=== PATIENT | female | born 2000 | race Caucasian/White ===

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

== ENCOUNTER → 2018-04-14 11:06 | Outpatient (REF) | payer BC, SELFPAY ==
[2018-04-14 11:12] LABS: Basophils % 0.4 % (0.1-2.0); Eosinophils # 0.1 K/mm3 (0.0-0.4); Eosinophils % 3.1 % (0.1-12.0); Hematocrit 42.4 % (37.0-47.0); Hemoglobin 13.5 g/dL (12.2-16.2); Lymphocytes % 26.6 K/mm3 (10-50); Mean Corpuscular HGB Conc 31.8 g/dL (31.8-35.4); Mean Corpuscular Hemoglobin 26.8 pg (27.0-31.2); Mean Corpuscular Volume 84.2 fl (81-99); Mean Platelet Volume 7.6 fl (7.4-10.4); Monocytes # 0.2 K/mm3 (0.1-1.0); Monocytes % 4.3 % (1.7-9.3); Neutrophils # 2.4 K/mm3 (1.8-7.8); Neutrophils % 65.7 % (37.0-80.0); Platelet Count 250 K/mm3 (142-424); Red Blood Count 5.03 M/mm3 (4.20-5.40); Red Cell Distribution Width 13.2 % (11.5-17.5); White Blood Count 3.7 K/mm3 (4.5-13.0)
[2018-04-14 11:38] LABS: Anion Gap 15.2 mEq/L (5-15); Blood Urea Nitrogen 14 mg/dL (7-18); Carbon Dioxide 25 mmol/L (21.0-32.0); Chloride 108 mmol/L (98-107); Creatinine,Serum 0.99 mg/dL (0.55-1.02); Estimated Glomerular Filt Rate 72 ml/min (>60); GFR (African American) 87 ML/MIN (>60); Glucose 89 mg/dL (74-106); Potassium 4.2 mmoL/L (3.5-5.1); Sodium 144 mmol/L (136-145)
[2018-04-15 15:24] LABS: Adenovirus F 40/41, stool Not Detected (NotDetected); Astrovirus Not Detected (NotDetected); Campylobacter Not Detected (NotDetected); Clostridium Difficile A/B, PCR Not Detected (NotDetected); Cryptosporidium Not Detected (NotDetected); Cyclospora Cayetanesis Not Detected (NotDetected); Entamoeba histolytica Not Detected (NotDetected); Enteropathogenic E coli Not Detected (NotDetected); Giardia lamblia Not Detected (NotDetected); Norovirus Not Detected (NotDetected); Plesimonas Shigalloides, PCR Not Detected (NotDetected); Rotavirus A Not Detected (NotDetected); Salmonella, PCR Not Detected (NotDetected); Sapovirus Not Detected (NotDetected); Shigella Enterovasive E coli Not Detected (NotDetected); Vibrio Cholerae Not Detected (NotDetected); Vibrio, PCR Not Detected (NotDetected); Yersinia Entercolitica, PCR Not Detected (NotDetected)
[2018-04-15 17:26] LABS: Enteroaggregative E coli Detected (NotDetected); Enterotoxigenic E coli Detected (NotDetected); Shiga-like toxin E coli Detected (NotDetected)
== END ==
LOC: LAB 11:06
PROVIDERS: Visit Provider Internal Medicine
DX: K52.9 Noninfective gastroenteritis and colitis, unspecified (principal)
CPT/HCPCS: 80048; 85025; 87177; 87507

== ENCOUNTER → 2018-05-13 15:00 | Outpatient (CLI) | payer BC, SELFPAY ==
[2018-05-14 14:28] LABS: Adenovirus F 40/41, stool Not Detected (NotDetected); Astrovirus Not Detected (NotDetected); Campylobacter Not Detected (NotDetected); Clostridium Difficile A/B, PCR Not Detected (NotDetected); Cryptosporidium Not Detected (NotDetected); Cyclospora Cayetanesis Not Detected (NotDetected); Entamoeba histolytica Not Detected (NotDetected); Enteropathogenic E coli Not Detected (NotDetected); Enterotoxigenic E coli Not Detected (NotDetected); Giardia lamblia Not Detected (NotDetected); Norovirus Not Detected (NotDetected); Plesimonas Shigalloides, PCR Not Detected (NotDetected); Rotavirus A Not Detected (NotDetected); Salmonella, PCR Not Detected (NotDetected); Sapovirus Not Detected (NotDetected); Shiga-like toxin E coli Not Detected (NotDetected); Shigella Enterovasive E coli Not Detected (NotDetected); Vibrio Cholerae Not Detected (NotDetected); Vibrio, PCR Not Detected (NotDetected); Yersinia Entercolitica, PCR Not Detected (NotDetected)
[2018-05-14 16:39] LABS: Enteroaggregative E coli Detected (NotDetected)
== END ==
PROVIDERS: Visit Provider Internal Medicine
DX: K52.9 Noninfective gastroenteritis and colitis, unspecified (principal)
CPT/HCPCS: 87507

== ENCOUNTER → 2018-05-27 15:07 | Outpatient (CLI) | payer BC, SELFPAY ==
[2018-05-27 15:10] LABS: Adenovirus F 40/41, stool Not Detected (NotDetected); Astrovirus Not Detected (NotDetected); Campylobacter Not Detected (NotDetected); Clostridium Difficile A/B, PCR Not Detected (NotDetected); Cryptosporidium Not Detected (NotDetected); Cyclospora Cayetanesis Not Detected (NotDetected); Entamoeba histolytica Not Detected (NotDetected); Enteroaggregative E coli Not Detected (NotDetected); Enteropathogenic E coli Not Detected (NotDetected); Enterotoxigenic E coli Not Detected (NotDetected); Giardia lamblia Not Detected (NotDetected); Norovirus Not Detected (NotDetected); Plesimonas Shigalloides, PCR Not Detected (NotDetected); Rotavirus A Not Detected (NotDetected); Salmonella, PCR Not Detected (NotDetected); Sapovirus Not Detected (NotDetected); Shiga-like toxin E coli Not Detected (NotDetected); Shigella Enterovasive E coli Not Detected (NotDetected); Vibrio Cholerae Not Detected (NotDetected); Vibrio, PCR Not Detected (NotDetected); Yersinia Entercolitica, PCR Not Detected (NotDetected)
== END ==
PROVIDERS: PCP Internal Medicine; Visit Provider Internal Medicine
DX: A04.2 Enteroinvasive Escherichia coli infection (principal)
CPT/HCPCS: 87507

== ENCOUNTER → 2021-05-29 14:58 | Outpatient (CLI) | payer BC, SELFPAY ==
[2021-05-29 15:02] LABS: Microscopic, Urine URINE MICROSCOPIC (MICROSCOPIC)
[2021-05-29 15:23] LABS: Appearance,Urine CLEAR (Clear); Bilirubin,Urine Negative (Negative); Blood, Urine Negative (Negative); Color,Urine STRAW (Yellow); Glucose,Urine (UA) Negative (Negative); Ketones,Urine Negative (Negative); Leukocyte Esterase,Urine Negative (Negative); Nitrate,Urine Negative (Negative); PH,Urine 6.5 (5.0-8.5); Protein,Urine Negative (Negative); Specific Gravity, Urine 1.015 (1.005-1.030); Urobilinogen,Urine 0.2 EU/dl (0.2)
--- NOTE | 2021-05-29 15:30 | XR_ITS ---
PROCEDURE: XR CHEST 2V CLINICAL HISTORY: FEVER COUGH COMPARISON: CR CXR CHEST(2 VIEWS-NOT PORTABLE) from 10/28/2013 DX CXR2V XR chest 2V from 10/25/2017 FINDINGS: The cardiomediastinal silhouette and pulmonary vascularity are within normal limits. The lungs are clear without infiltrates, suspicious nodules, or pleural effusions. No acute bony abnormalities. IMPRESSION: No acute findings. Dictated by: Michael Hampton MD 05/29/2021 15:57 Michael Hampton MD in [place] 05/29/2021 15:57
[2021-05-29 15:38] LABS: Basophils % 0.6 % (0.1-2.0); Eosinophils # 0.1 K/mm3 (0.0-0.4); Eosinophils % 1.3 % (0.1-12.0); Hematocrit 41.5 % (37.0-47.0); Hemoglobin 13.4 g/dL (12.2-16.2); Lymphocytes # 1.3 K/mm3 (0.7-4.5); Lymphocytes % 27.5 % (10-50); Mean Corpuscular HGB Conc 32.4 g/dL (31.8-35.4); Mean Corpuscular Hemoglobin 27.8 pg (27.0-31.2); Mean Corpuscular Volume 85.8 fl (81-99); Mean Platelet Volume 7.3 fl (7.4-10.4); Monocytes # 0.2 K/mm3 (0.1-1.0); Monocytes % 4.8 % (1.7-9.3); Neutrophils # 3.2 K/mm3 (1.8-7.8); Neutrophils % 65.8 % (37.0-80.0); Platelet Count 272 K/mm3 (142-424); Red Blood Count 4.83 M/mm3 (4.20-5.40); Red Cell Distribution Width 14.2 % (11.5-17.5); White Blood Count 4.8 K/mm3 (4.8-10.8)
[2021-05-29 15:55] LABS: Chloride 103 mmol/L (98-107); Sodium 139 mmol/L (136-145)
[2021-05-29 15:58] LABS: Alanine Aminotransferase 14 U/L (12-78); Albumin Level 4.7 g/dl (3.5-5.0); Albumin/Globulin Ratio 1.5 (1.1-1.8); Alkaline Phosphatase 52 U/L (38-126); Aspartate Amino Transferase 29 U/L (14-36); Bilirubin,Total 0.6 mg/dl (0.2-1.3); Blood Urea Nitrogen 9 mg/dl (7-17); Calcium 8.9 mg/dl (8.4-10.2); Carbon Dioxide 26 mmol/L (22.0-30.0); Estimated Glomerular Filt Rate 89 ml/min (>60); GFR (African American) 108 ML/MIN (>60); Globulin 3.2 g/dL (1.3-3.2); Glucose 97 mg/dl (74-100); Total Protein,Serum 7.9 g/dl (6.3-8.2)
[2021-05-29 16:04] LABS: C-Reactive Protein 0.7 mg/L (0-4)
[2021-05-29 16:21] LABS: Squamous Epithelial Cell,Urine Occasional #/hpf (0-5)
[2021-05-29 16:36] LABS: Erythrocyte Sedimentation Rate 22 mm/hr (0-20)
[2021-05-31 19:11] LABS: Antinuclear Antibodies, IFA Positive (.)
== END ==
PROVIDERS: Visit Provider Internal Medicine
DX: R50.9 Fever, unspecified (principal); R05 Cough
CPT/HCPCS: 36415; 71046; 80053; 81001; 85025; 85651; 86038; 86140; 87040

== ENCOUNTER 2021-06-08 12:11 | Emergency (ER) | payer BC, SELFPAY ==
[2021-06-08 14:00] VITALS: BP 137/91; PULSE 83; RESP 18; TEMP 36.8; O2SAT 100; BMI 20.7
[2021-06-08 14:37] VITALS: BP 137/91; PULSE 83; RESP 18; TEMP 36.8; O2SAT 100
--- NOTE | 2021-06-08 14:37 | HMH.EDUTC ---
[facility] [place] Clinical Impression: Exposure to COVID-19 virus, Viral syndrome Disposition: Home, Self-Care Condition on Discharge: Good Instructions: DI for Viral Syndrome, DI for COVID-19 (Suspected or Confirmed ), Preventing the Spread of Coronavirus Discharge Instructions Additional Instructions: *Monitor Temp, Over the counter Motrin or Tylenol as directed/as needed Tylenol every 4 hours and Motrin every 6 hours (as long as your family doctor has told you that you can take it) for fever or pain. and straight to ER if unable to lower temp less than 101.0 after medication given *Warm salt water gargles may help to soothe the throat *Throat Lozenges *Warm fluids like tea with honey may help to soothe the throat *Sleep elevated *Humidifier/Vaporizer Follow up IMMEDIATELY for new or worsening symptoms or no Noticeable improvement over the next 48-72 hours. 911 for difficulty breathing or swallowing You were tested for today for COVID19 your test result should be back in the next 24-48 hours, you may call to the [facility] to see if your test results are back in the next 48 hours [phone] [facility] hours are 9am-9pm You was given a handout with instructions for Self Quarantine and Self isolation for while you wait on test results and what to do if they are positive If you are positive the Health Dept will be contacting you also Make sure to take your Vitamins Vit. C Vit D and Zinc if you can take them Referrals: Erwin Ochoa [Primary Care Provider] - As needed Forms: Work/School Release Medical Decision Making - Matteo Inquiry Pt receiving controlled substance: No Matteo was queried for this patient: No Vital Signs: 06/08/21 14:00 Temperature 98.2 F Temperature Source Oral Pulse Rate [Right Brachial] 83 Respiratory Rate 18 Blood Pressure [Right Arm] 137/91 H Blood Pressure Mean [Right Arm] 106 Blood Pressure Source [Right Arm] Automatic Cuff Blood Pressure Position [Right Arm] Sitting 02 Sat by Pulse Oximetry 100 Oxygen Delivery Method Room Air Orders (Tests/Meds): ORDERS Category Date Time Status Covid-19 Nasal PCR ([facility]) Routine Lab 06/08/21 14:34 Ordered [facility] [place] H[place] - General Stated complaint: covid test, symptoms Time Seen by Provider: 06/08/21 14:37 Mode of Arrival: Ambulatory Source of Information: Patient Limitations: No Limitations Description of Symptoms (Recalled from Triage Doc. by RN): COVID TEST D/T EXPOSURE HEENT Symptoms (Recalled from RN notes): No Resp Symptoms (Recalled from RN notes): No Skin Symptoms (Recalled from RN notes): No MS Symptoms (Recalled from RN notes): No Functional Status (Recalled from RN notes): WNL - History of Present Illness Provider Complaint: Patient state that she was recently exposed to COVID x 2 States that she has been having nasal congestion Scratchy throat, and headache so she came in to get tested for COVID - Related Data Allergies Allergy/AdvReac Type Severity Reaction Status Date / Time amoxicillin [AMOXICILLIN] Allergy Unknown I-HIVES Unverified 09/17/17 15:02 cefaclor [CEFACLOR] Allergy Unknown I-HIVES Unverified 09/17/17 15:02 - Worker's Comp Is this a Worker's Comp case?: No [facility] History - Hepatitis A Screen Drug use history?: No High risk sexual behaviors?: No History of sexually transmitted infection?: No Currently employed?: No Childcare worker?: No Do you have indoor plumbing?: Yes Do you have electricity?: Yes Attestation statement:: This patient has been screened for Hepatitis A risk factors. I have reviewed the patient's past medical history: Yes ROS Obtained: Yes All systems reviewed & no additional complaints, Yes Systems reviewed as appropriate & no additional complaints - Constitutional Constitutional: Reports system reviewed and no additional complaints, except as docu, Reports fever(s), Reports headache(s) - ENT Ears, Nose, Mouth, and Throat: Reports system reviewed and no additional complaints, except as do
== END 2021-06-08 14:40 | disposition home or self-care (01) ==
PROVIDERS: Emergency Provider Nurse Practitioner; PCP Internal Medicine
DX: Z20.822 Contact with and (suspected) exposure to COVID-19 (principal)
CPT/HCPCS: 99202; G0463; U0003

== ENCOUNTER → 2021-07-11 09:40 | Outpatient (CLI) | payer BC, SELFPAY | PROVIDERS: PCP Internal Medicine; Visit Provider Nurse Practitioner | DX: Z20.822 Contact with and (suspected) exposure to COVID-19 (principal); U07.1 COVID-19 | CPT/HCPCS: C9803; U0003; U0005 ==

== ENCOUNTER → 2021-07-21 08:10 | Outpatient (CLI) | payer BC, SELFPAY | PROVIDERS: PCP Internal Medicine; Visit Provider Nurse Practitioner | DX: Z20.822 Contact with and (suspected) exposure to COVID-19 (principal); U07.1 COVID-19 | CPT/HCPCS: C9803; U0003; U0005 ==

== ENCOUNTER → 2021-07-24 11:03 | Outpatient (CLI) | payer BC, SELFPAY | PROVIDERS: PCP Internal Medicine; Visit Provider Nurse Practitioner | DX: Z20.822 Contact with and (suspected) exposure to COVID-19 (principal) | CPT/HCPCS: C9803; U0003; U0005 ==

== ENCOUNTER 2022-08-02 14:47 | Emergency (ER) | payer BC, SELFPAY ==
[2022-08-02 15:40] VITALS: BP 134/87; PULSE 79; RESP 20; TEMP 37.2; O2SAT 100; BMI 19.9
--- NOTE | 2022-08-02 16:14 | EXP.UTC ---
Discharge Plan Disposition Patient Disposition: Home, Self-Care Condition: Good Prescriptions Prescriptions: New azithromycin [Zithromax Z-Gurwinder] 250 mg tablet See Rx Instructions .ROUTE .COMPLEX 5 Days Qty: 6 0RF Rx Instructions: For 250 mg dose pack: take 500 mg today (day 1), then 250 mg for 4 days (days 2-5) methylprednisolone [Medrol (Gurwinder)] 4 mg tablets,dose pack See Rx Instructions .Route .COMPLEX 6 Days Qty: 21 0RF Rx Instructions: taper pack; Referrals Follow up/Referrals: Erwin Ochoa MD [Primary Care Provider] - See instructions Activity Restrictions/Add. Instructions Additional Instructions/Restrictions: *Monitor Temp, Over the counter Motrin or Tylenol as directed/as needed Tylenol every 4 hours and Motrin every 6 hours (as long as your family doctor has told you that you can take it) for fever or pain. and straight to ER if unable to lower temp less than 101.0 after medication given *Warm salt water gargles may help to soothe the throat *Throat Lozenges? *Warm fluids like tea with honey may help to soothe the throat? *Sleep elevated *Humidifier/Vaporizer Take medication as prescribed Follow up IMMEDIATELY for new or worsening symptoms or no Noticeable improvement over the next 48-72 hours. 911 for difficulty breathing or swallowing Clinical Impressions Clinical Impression: Sinusitis Instructions Patient Instructions: DI for Sinusitis, Sinusitis Discharge ED Provider: Jasmin Negro [facility] General Stated complaint: Head congestion, cough Mode of Arrival: Ambulatory Source of Information: Patient Limitations: No Limitations Time Seen by Provider: 08/02/22 16:14 Description of Symptoms (Recalled from Triage Doc. by RN): PATIENT C/O SINUS PRESSURE, COUGH, FEVER AND HEADACHE THAT STARTED 2 DAYS AGO HEENT Symptoms (Recalled from RN notes): Yes Resp Symptoms (Recalled from RN notes): Yes Skin Symptoms (Recalled from RN notes): No MS Symptoms (Recalled from RN notes): No Functional Status (Recalled from RN notes): WNL History of Present Illness Provider Complaint: Patient states that she has been having sinus pressure on and off for over a week but for the last couple of days the sinus pressure and congestion has got worse and she had a sinus headache earlier States that it feels like it does when she gets a sinus infection Related Data Previous Rx's Medication Instructions Recorded azithromycin 250 mg tablet See Rx Instructions PO .COMPLEX 5 08/02/22 (Zithromax Z-Gurwinder) days #6 tabs methylprednisolone 4 mg tablets in See Rx Instructions .Route 08/02/22 a dose pack (Medrol (Gurwinder)) .COMPLEX 6 days #21 tabs Allergies Allergy/AdvReac Type Severity Reaction Status Date / Time amoxicillin [AMOXICILLIN] Allergy Unknown I-HIVES Verified 08/02/22 15:52 cefaclor [CEFACLOR] Allergy Unknown I-HIVES Verified 08/02/22 15:52 Worker's Comp Is this a Worker's Comp case?: No PFSH PFSH Medical History (Updated 08/02/22 @ 16:22 by Jasmin Negro APRN) No significant past medical history Social History (Updated 08/02/22 @ 15:51 by Maria Luisa Radford RN) Smoking Status: Unknown if ever smoked alcohol intake: never current occupational status: other Travel in the last 8 weeks: None ROS Obtained: Yes All systems reviewed & no additional complaints except as documented and Yes Systems reviewed as appropriate & no additional complaints except as documented Constitutional Constitutional: Reports system reviewed and no additional complaints, except as documented, Reports as per HPI, Reports fever(s) and Reports headache(s) ENT Ears, Nose, Mouth, and Throat: Reports system reviewed and no additional complaints, except as documented, Reports as per HPI, Reports headache(s), Reports sinus pain and Reports sinus pressure Cardiovascular Cardiovascular: Reports system reviewed and no additional complaints, except as documented and Reports as per HPI Respir
[2022-08-02 16:28] VITALS: BP 134/87; PULSE 79; RESP 20; TEMP 37.2; O2SAT 100
== END 2022-08-02 16:31 | disposition home or self-care (01) ==
PROVIDERS: Emergency Provider Nurse Practitioner; PCP Internal Medicine
DX: J32.9 Chronic sinusitis, unspecified (principal)
CPT/HCPCS: 99212; G0463

== ENCOUNTER 2023-07-23 19:12 | Emergency (ER) | payer BC, SELFPAY ==
[2023-07-23 20:05] VITALS: BP 131/86; PULSE 81; RESP 18; TEMP 36.8; O2SAT 98; BMI 18.4
[2023-07-23 20:14] VITALS: BP 131/86; PULSE 81; RESP 18; TEMP 36.8; O2SAT 98
--- NOTE | 2023-07-23 20:30 | EXP.UTC ---
Discharge Plan Disposition Patient Disposition: Home, Self-Care Condition: Good Prescriptions Prescriptions: New albuterol sulfate [Proventil HFA] 90 mcg/actuation HFA aerosol inhaler 1 - 2 inh inhalation Q6H PRN (Reason: shortness of breath or wheezing) Qty: 8.5 0RF prednisone 10 mg tablet 10 mg PO BID 5 Days Qty: 10 0RF azithromycin [Zithromax Z-Gurwinder] 250 mg tablet See Rx Instructions .ROUTE .COMPLEX 5 Days Qty: 6 0RF Rx Instructions: For 250 mg dose pack: take 500 mg today (day 1), then 250 mg for 4 days (days 2-5) guaifenesin [Mucinex] 600 mg tablet extended release 12hr 600 - 1,200 mg PO BID PRN (Reason: cough) Qty: 20 0RF Referrals Follow up/Referrals: Erwin Ochoa MD [Primary Care Provider] - See instructions Activity Restrictions/Add. Instructions Additional Instructions/Restrictions: Start antibiotic today. Be sure to complete entire prescription even if feeling better Monitor temp. Tylenol every 4 hours as needed and / or ibuprofen every 6 hours as needed ( As long as your primary care physician has told you that it ok to take both. For fever/aches/pains ER if no less than 101 despite Tylenol or Motrin Humidifier/vaporizer or hot steamy shower Inhaler every 4-6 hours as needed like we discussed. If unsure how to use it, ask pharmacist to demonstrate how. Should help open airways and improve cough, wheezing, and shortness of breath Mucinex for your cough Be sure to drink lots of water. *Start steroid today. Helps with inflammation therefore, cough and wheezing. Follow directions on the package. Reviewed side effects. Patient reports taking them before. Follow up IMMEDIATELY for new or worsening of symptoms OR no noticeable improvement over the next 48-72 hours. 911 immediately for any life threatening symptoms such as chest pain or difficulty breathing Clinical Impressions Clinical Impression: Bronchitis Sinusitis Qualifiers: Sinusitis location: unspecified location Chronicity: unspecified Qualified Code(s): J32.9 - Chronic sinusitis, unspecified Instructions Patient Instructions: DI for Sinusitis, Sinusitis, Acute Bronchitis Discharge ED Provider: Jasmin Negro [facility] General Stated complaint: ace, wheezy Mode of Arrival: Ambulatory Source of Information: Patient Limitations: No Limitations Time Seen by Provider: 07/23/23 20:31 Description of Symptoms (Recalled from Triage Doc. by RN): PATIENT C/O COUGH AND RATTLING IN CHEST X 1 WEEK HEENT Symptoms (Recalled from RN notes): No Resp Symptoms (Recalled from RN notes): Yes Skin Symptoms (Recalled from RN notes): No MS Symptoms (Recalled from RN notes): No Functional Status (Recalled from RN notes): WNL History of Present Illness Provider Complaint: Patient states that she has been having cough and rattling like feeling in her chest, sinus congestion and pressure States that she seen her PCP and they put her on Amoxicillin and she has since finished it and it didnt clear it up and it came back States that tonight she was still having cough and sinus congestion along with congestion in her chest so she came in to see if she needed something else for the sinusitis / bronchitis Related Data Previous Rx's Medication Instructions Recorded albuterol sulfate 90 mcg/actuation 1 - 2 inh inhalation Q6H PRN 07/23/23 aerosol inhaler (Proventil HFA) shortness of breath or wheezing #8.5 grams azithromycin 250 mg tablet See Rx Instructions PO .COMPLEX 5 07/23/23 (Zithromax Z-Gurwinder) days #6 tabs guaifenesin 600 mg tablet, 600 - 1,200 mg PO BID PRN cough 07/23/23 extended release 12 hr (Mucinex) #20 tabs prednisone 10 mg tablet 10 mg PO BID 5 days #10 tabs 07/23/23 Allergies Allergy/AdvReac Type Severity Reaction Status Date / Time amoxicillin [AMOXICILLIN] Allergy Unknown I-HIVES Verified 10/03/22 12:56 cefaclor [CEFACLOR] Allergy Unknown I-HIVES Verified 10/03/22
== END 2023-07-23 20:50 | disposition home or self-care (01) ==
PROVIDERS: Emergency Provider Nurse Practitioner; PCP Internal Medicine
DX: J20.9 Acute bronchitis, unspecified (principal); J01.90 Acute sinusitis, unspecified
CPT/HCPCS: 99212; 99214; G0463

== ENCOUNTER 2023-09-21 12:00 | Emergency (ER) | payer BC, SELFPAY ==
[2023-09-21 14:35] VITALS: BP 135/80; PULSE 81; RESP 18; TEMP 36.9; O2SAT 100; BMI 17.7
--- NOTE | 2023-09-21 14:50 | EXP.UTC ---
Discharge Plan Disposition Patient Disposition: Home, Self-Care Condition: Good Prescriptions Prescriptions: New ofloxacin 0.3 % drops See Rx Instructions .ROUTE .COMPLEX Qty: 10 0RF Rx Instructions: put 1-2 drps into affected eye(s) every 2-4 h x 2 days, then 1-2 drps 4 times/day days 3-7 Referrals Follow up/Referrals: Erwin Ochoa MD [Primary Care Provider] - See instructions Clinical Impressions Clinical Impression: Conjunctivitis Qualifiers: Conjunctivitis type: acute Acute conjunctivitis type: bacterial Laterality: left Qualified Code(s): H10.32 - Unspecified acute conjunctivitis, left eye Instructions Patient Instructions: DI for Conjunctivitis Discharge ED Provider: Katy Prado [facility] General Stated complaint: AO 09/20 left eye irritation Time Seen by Provider: 09/21/23 14:50 History of Present Illness Provider Complaint: Pt relates that she hit her eye and then rubbed it with her hands and the eye has turned completely red now. Related Data Previous Rx's Medication Instructions Recorded ofloxacin 0.3 % eye drops See Rx Instructions ophthalmic 09/21/23 (eye) .COMPLEX #10 mL Allergies Allergy/AdvReac Type Severity Reaction Status Date / Time amoxicillin [AMOXICILLIN] Allergy Unknown I-HIVES Verified 10/03/22 12:56 cefaclor [CEFACLOR] Allergy Unknown I-HIVES Verified 10/03/22 12:56 [facility] Disclaimer: The information contained in this section may have been updated after the patient was seen, as this information can be updated by other users. Medical History Family history of breast cancer maternal grandmother diagnosed at age 60 No significant past medical history Surgical History History of placement of ear tubes History of tonsillectomy Family History Other Cancer Diabetes Hypertension Social History Smoking Status: Never smoker alcohol intake: current substance use type: denies use current occupational status: employed and other Travel in the last 8 weeks: None ROS Obtained: Yes All systems reviewed & no additional complaints except as documented Constitutional Constitutional: Reports system reviewed and no additional complaints, except as documented Eyes Eyes: Reports system reviewed and no additional complaints, except as documented, Reports eye discharge, Reports irritation and Reports sensitivity to light ENT Ears, Nose, Mouth, and Throat: Reports system reviewed and no additional complaints, except as documented Cardiovascular Cardiovascular: Reports system reviewed and no additional complaints, except as documented Respiratory Respiratory: Reports system reviewed and no additional complaints, except as documented Gastrointestinal Gastrointestingal: Reports system reviewed and no additional complaints, except as documented Genitourinary Female Genitourinary: Reports system reviewed and no additional complaints, except as documented Musculoskeletal Musculoskeletal: Reports system reviewed and no additional complaints, except as documented Integumentary/Breasts Skin/Breast: Reports system reviewed and no additional complaints, except as documented Neurologic Neurologic: Reports system reviewed and no additional complaints, except as documented Endocrine Endocrine: Reports system reviewed and no additional complaints, except as documented Hematologic/Lymphatic Henatologic/Lymphatic: Reports system reviewed and no additional complaints, except as documented Allergic/Immunologic Allergic/Immunologic: Reports system reviewed and no additional complaints, except as documented Physical Exam General General appearance: alert and in no apparent distress Head Head exam: atraumatic and normocephalic Eye Eye exam: Present PERRL, EOMI,
[2023-09-21 15:09] VITALS: BP 135/80; PULSE 81; RESP 18; TEMP 36.9; O2SAT 100
== END 2023-09-21 15:11 | disposition home or self-care (01) ==
PROVIDERS: Emergency Provider Nurse Practitioner Family; PCP Internal Medicine
DX: H10.32 Unspecified acute conjunctivitis, left eye (principal)
CPT/HCPCS: 99212; 99214; G0463

== ENCOUNTER 2023-10-23 16:32 | Outpatient (CLI) | payer BC, SELFPAY | END 2023-10-23 23:59 | LOC: LAB.DROPOF 16:32 | PROVIDERS: PCP Internal Medicine; Visit Provider Internal Medicine | DX: H10.31 Unspecified acute conjunctivitis, right eye (principal) | CPT/HCPCS: 87070; 87205 ==

== ENCOUNTER 2023-11-26 11:44 | Outpatient (CLI) | payer BC, SELFPAY | END 2023-11-26 23:59 | LOC: LAB 11:44 | PROVIDERS: PCP Internal Medicine; Visit Provider Internal Medicine | DX: U07.1 COVID-19 (principal) | CPT/HCPCS: 87635 ==

== ENCOUNTER 2024-06-04 08:08 | Emergency (ER) | payer BC, SELFPAY ==
[2024-06-04 08:20] VITALS: BP 127/77; PULSE 96; RESP 20; TEMP 37; O2SAT 100; BMI 19.8
--- NOTE | 2024-06-04 08:33 | ED_ITS ---
Discharge Plan Disposition Patient Disposition: Home, Self-Care Condition: Good Prescriptions Prescriptions: New pseudoephedrine HCl [Sudafed 12 Hour] 120 mg tablet extended release 120 mg PO Q12H PRN (Reason: nasal congestion) Qty: 20 0RF benzonatate 100 mg capsule 100 mg PO TID PRN (Reason: cough) Qty: 30 0RF No Action oseltamivir [Tamiflu] 75 mg capsule 75 mg PO BID 5 Days Qty: 10 0RF Referrals Follow up/Referrals: Erwin Ochoa MD [Primary Care Provider] - See instructions Activity Restrictions/Add. Instructions Additional Instructions/Restrictions: *Monitor Temp, Over the counter Motrin or Tylenol as directed/as needed Tylenol every 4 hours and Motrin every 6 hours (as long as your family doctor has told you that you can take it) for fever or pain. and straight to ER if unable to lower temp less than 101.0 after medication given *Warm salt water gargles may help to soothe the throat *Throat Lozenges? *Warm fluids like tea with honey may help to soothe the throat? *Sleep elevated *Humidifier/Vaporizer *Your throat swab was sent for culture. Those results are typically sent to your primary care. Be sure to follow up in 2-3 days with your family doctor/primary care physician if no improvement so they can review those result and treat if necessary. If you don?t have a primary care doctor, I recommend you get one but in the mean time, you will have to return to a walk in clinic Follow up IMMEDIATELY for new or worsening symptoms or no Noticeable improvement over the next 48-72 hours. 911 for difficulty breathing or swallowing You were tested for today for COVID19 your test result should be back in the next 24 hours, you may check your results on the [facility] Clinical Impressions Clinical Impression: Viral syndrome Stand Alone Forms Stand Alone Forms: Work/School Release Instructions Patient Instructions: Cough, DI for Viral Syndrome, DI for Nasal Congestion Print Language Print Language: Gambian Discharge ED Provider: Jasmin Negro [facility] General Stated complaint: headache, cough, congestion Time Seen by Provider: 06/04/24 08:33 History of Present Illness Provider Complaint: Patient states that she has been having nasal congestion, cough, headache, body aches and over all not feeling well States that she was dx with flu b last week and took a home COVID test last night and it was positive so she had to come in and get a test here Related Data Previous Rx's ?Medication ?Instructions ?Recorded oseltamivir 75 mg capsule (Tamiflu) 75 mg PO BID 5 days #10 caps 05/28/24 benzonatate 100 mg capsule 100 mg PO TID PRN cough #30 caps 06/04/24 pseudoephedrine HCl 120 mg 120 mg PO Q12H PRN nasal 06/04/24 tablet,extended release (Sudafed congestion #20 tabs 12 Hour) Allergies Allergy/AdvReac Type Severity Reaction Status Date / Time amoxicillin [AMOXICILLIN] Allergy Unknown I-HIVES Verified 05/28/24 11:48 cefaclor [CEFACLOR] Allergy Unknown I-HIVES Verified 05/28/24 11:48 [facility] Disclaimer: The information contained in this section may have been updated after the patient was seen, as this information can be updated by other users. Medical History Family history of breast cancer maternal grandmother diagnosed at age 60 No significant past medical history Surgical History History of placement of ear tubes History of tonsillectomy Family History Other Cancer Diabetes Hypertension Social History Smoking Status: Never smoker alcohol intake: current substance use type: denies use current occupational status: employed and other Travel in the last 8 weeks: None ROS Obtained: Yes All systems reviewed & no additional complaints except as documented and Yes Systems reviewed as appropriate & no additional complaints except as documented Constitutional Constitutional: Reports system reviewed and no additional complaints, except as documented, Reports as per HPI, Reports body ache and Reports headache(s) ENT Ears, Nose, Mouth, and Throat: Reports system reviewed and no additional complaints, except as documented, Reports as per HPI, Reports headache(s), Reports nasal congestion and Reports nasal discharge Cardiovascular Cardiovascular: Reports system reviewed and no additional complaints, except as documented and Reports as per HPI Respiratory Respiratory: Reports system reviewed and no additional complaints, except as documented and Reports as per HPI Gastrointestinal Gastrointestingal: Reports system reviewed and no additional complaints, except as documented and as per HPI Musculoskeletal Musculoskeletal: Reports system reviewed and no additional complaints, except as documented and Reports as per HPI Neurologic Neurologic: Reports system reviewed and no additional complaints, except as documented, Reports as per HPI and Reports headache(s) Physical Exam General General appearance: alert and in no apparent distress ENT ENT exam: Present mucous membranes moist Expanded ENT Exam Nose exam: Absent sinus tenderness Throat exam: Present normal inspection Respiratory Respiratory exam: Present normal lung sounds bilaterally; Absent respiratory distress or wheezes Cardiovascular Cardiovascular exam: Present regular rate, normal rhythm and normal heart sounds Neurological Exam Neurological exam: Present alert, oriented X3 and normal gait Medical Decision Making Matteo Inquiry Pt receiving controlled substance: No Matteo was queried for this patient: No Orders (Tests/Meds): ORDERS Category Date Time Status Covid-19 Nasal PCR ([facility]) Routine Lab 06/04/24 08:27 Ordered
[2024-06-04 08:48] LABS: UTC Strep Screen (Rapid) Negative (Negative)
[2024-06-04 08:51] VITALS: BP 127/77; PULSE 96; RESP 20; TEMP 37; O2SAT 100
== END 2024-06-04 08:57 | disposition home or self-care (01) ==
PROVIDERS: Emergency Provider Nurse Practitioner; PCP Internal Medicine
DX: U07.1 COVID-19 (principal); R51.9 Headache, unspecified; R05.9 Cough, unspecified; R09.81 Nasal congestion
CPT/HCPCS: 87635; 87880; 99212; 99214; G0463

== ENCOUNTER 2024-09-07 16:48 | Emergency (ER) | payer BC, SELFPAY ==
[2024-09-07 17:04] VITALS: BP 132/97; PULSE 92; RESP 18; TEMP 36.8; O2SAT 99
[2024-09-07 17:21] LABS: UTC Influenza A Antigen Negative (Negative); UTC Influenza B Antigen Negative (Negative)
--- NOTE | 2024-09-07 17:31 | EXP.UTC ---
Discharge Plan Disposition Patient Disposition: Home, Self-Care Condition: Good Prescriptions Prescriptions: New ondansetron 4 mg tablet,disintegrating 4 mg PO Q8H PRN (Reason: nausea and vomiting) Qty: 10 0RF Referrals Follow up/Referrals: Erwin Ochoa MD [Primary Care Provider] - See instructions Activity Restrictions/Add. Instructions Additional Instructions/Restrictions: Drink extra fluids with and between meals. If you have difficulty drinking, try very small amounts of water or suck on ice chips. ? Avoid fruit juices, as these do not replace minerals and can actually increase diarrhea. ? Children and adults can use sports drinks to replenish electrolytes. Younger children and infants should use products formulated for children, like oral rehydration solutions. ? Eat food in small amounts and let your stomach recover. ? Get lots of rest. You may feel tired or weak. ? No greasy or fried foods for the next 24-48 hours BRAT diet Bananas Rice Apples and [place] ? Make sure to drink plenty of liquids ? Return if needed ? Straight to ER if any life threatening symptoms ? Zofran as prescribed ? Follow up with family doctor in the next 48-72 hours if no improvement or any worsening of symptoms Clinical Impressions Clinical Impression: Viral syndrome Stand Alone Forms Stand Alone Forms: Work/School Release Instructions Patient Instructions: Nausea and Vomiting-Adult, Diarrhea Print Language Print Language: [place] Discharge ED Provider: Jasmin Negro [facility] [place] HPI General Stated complaint: vomiting, diarrhea, abd pain, h/a, fever Mode of Arrival: Ambulatory Source of Information: Patient Time Seen by Provider: 09/07/24 17:31 Description of Symptoms (Recalled from Triage Doc. 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 HEENT Symptoms (Recalled from RN notes): No Resp Symptoms (Recalled from RN notes): No Skin Symptoms (Recalled from RN notes): No MS Symptoms (Recalled from RN notes): No Functional Status (Recalled from RN notes): WNL History of Present Illness Provider Complaint: Patient states that she works at the daycare and several kids has had the stomach virus and she thinks she may have it now too States that she has been having N/V/D cramping before diarrhea episodes, body aches and fatigue States that she came in to get checked for the flu to make sure she didnt have that Related Data Previous Rx's ?Medication ?Instructions ?Recorded ondansetron 4 mg disintegrating 4 mg PO Q8H PRN nausea and 09/07/24 tablet vomiting #10 tabs Allergies Allergy/AdvReac Type Severity Reaction Status Date / Time amoxicillin (AMOXICILLIN) Allergy Unknown I-HIVES Verified 07/28/24 11:11 cefaclor (CEFACLOR) Allergy Unknown I-HIVES Verified 07/28/24 11:11 Worker's Comp Is this a Worker's Comp case?: No [facility] Disclaimer: The information contained in this section may have been updated after the patient was seen, as this information can be updated by other users. Medical History Family history of breast cancer maternal grandmother diagnosed at age 60 No significant past medical history Surgical History History of placement of ear tubes History of tonsillectomy Family History Other Cancer Diabetes Hypertension Social History Smoking Status: Never smoker alcohol intake: current substance use type: denies use current occupational status: employed and other Travel in the last 8 weeks: None ROS Obtained: Yes All systems reviewed & no additional complaints except as documented and Yes Systems reviewed as appropriate & no additional complaints except as documented Constitutional Constitutional: Reports system reviewed and no additional complaints, except as documented, Reports as per HPI, Reports body ache, Reports chills and Reports fever(s) ENT Ears, Nose, Mouth, and Throat: Reports system reviewed and no additional complaints, except as documented, Reports as per HPI and Reports nasal congestion Cardiovascular Cardiovascular: Reports system reviewed and no additional complaints, except as documented and Reports as per HPI Respiratory Respiratory: Reports system reviewed and no additional complaints, except as documented and Reports as per HPI Gastrointestinal Gastrointestingal: Reports system reviewed and no additional complaints, except as documented, as per HPI, cramping, diarrhea, nausea and vomiting; Denies abdominal pain Physical Exam General General appearance: alert and in no apparent distress ENT ENT exam: Present mucous membranes moist Expanded ENT Exam Nose exam: Absent sinus tenderness Throat exam: Present normal inspection Chest Chest inspection: Present normal inspection and symmetric chest wall rise; Absent tenderness Respiratory Respiratory exam: Present normal lung sounds bilaterally; Absent respiratory distress or wheezes Cardiovascular Cardiovascular exam: Present regular rate, normal rhythm and normal heart sounds Abdominal Exam Abdominal exam: Present soft and normal bowel sounds; Absent distention, tenderness, guarding or rebound Neurological Exam Neurological exam: Present alert, oriented X3 and normal gait Medical Decision Making Medical Records Screening: Per USPSTF and CDC recommendations, given the prevalence of disease in our region, it is our hospital?s policy to screen for HIV and viral Hepatitis for all patients aged 18 and over and those with ongoing risk factors. Matteo Inquiry Pt receiving controlled substance: No Matteo was queried for this patient: No Vital Signs: 09/07/24 17:04 Temperature 98.3 F Temperature Source Oral Pulse Rate [Left Radial] 92 H Respiratory Rate 18 Blood Pressure [Left Arm] 132/97 H Blood Pressure Mean [Left Arm] 108 02 Sat by Pulse Oximetry 99 Lab Data Lab results reviewed: Yes I reviewed the patient's lab results. Lab Results 09/07/24 17:20: Influenza Type A Ag Negative, Influenza Type B Ag Negative
[2024-09-07 17:41] VITALS: BP 132/97; PULSE 92; RESP 18; TEMP 36.8
== END 2024-09-07 17:52 | disposition home or self-care (01) ==
PROVIDERS: Emergency Provider Nurse Practitioner; PCP Internal Medicine
DX: B34.9 Viral infection, unspecified (principal); R11.2 Nausea with vomiting, unspecified; R19.7 Diarrhea, unspecified; R50.9 Fever, unspecified; R09.81 Nasal congestion
CPT/HCPCS: 87804; 99212; G0381

== ENCOUNTER 2025-06-27 10:19 | Emergency (ER) | payer BC, SELFPAY ==
[2025-06-27 10:31] VITALS: BP 135/86; BP 157/101; PULSE 115; PULSE 91; RESP 17; TEMP 36.9; O2SAT 100; O2SAT 99; BMI 21.1
--- NOTE | 2025-06-27 10:43 | US_ITS ---
PROCEDURE INFORMATION: Exam: US , Transvaginal Exam date and time: 06/27/2025 11:38 AM Age: 25 years old Clinical indication: Lmp or gestational age (in weeks): 4w4d; Antepartum complications; Bleeding; ; Additional info: Spotting, 4 wks by dates, unkn location LABS AND CLINICAL REPORTS: Choriogonadotropin in serum (Serum HCG): 3 mIU/mL TECHNIQUE: Imaging protocol: Real-time transvaginal obstetrical ultrasound of the maternal pelvis with image documentation. Transvaginal imaging was used for better evaluation of the fetus, adnexa, and/or cervix. COMPARISON: No relevant prior studies available. FINDINGS: Gestation: No intrauterine identified.. MATERNAL: Uterus: Endometrium 8.3 mm Right ovary/adnexa: Right ovary 4 x 2.1 x 1.9 cm total volume 8.7 cc. 1.3 cm Corpus luteal cyst in the right ovary. Peak systolic velocity in the right ovary 30 cm/s Left ovary/adnexa: Left ovary 3.2 x 1.9 x 2 cm total volume 6.4 cc. Peak systolic velocity left ovary 12 cm/s Intraperitoneal space: No fluid in the cul-de-sac Other findings: [employer] stated that there is active bleeding.. IMPRESSION: 1. No intrauterine identified.. 2. 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
--- NOTE | 2025-06-27 10:44 | ED_ITS ---
Discharge Plan Disposition Patient Disposition: Home, Self-Care Prescriptions Prescriptions: No Action azithromycin [Zithromax Z-Gurwinder] 250 mg tablet See Rx Instructions PO .COMPLEX Qty: 6 0RF Rx Instructions: For 250 mg dose pack: take 500 mg today (day 1), then 250 mg for 4 days (days 2-5) PO elzbrqujibedrtz-jnpmjxcax-IS [Bromfed DM] 2-30-10 mg/5 mL syrup 5 ml PO Q4-6H PRN (Reason: cold symptoms) Qty: 90 0RF Referrals Follow up/Referrals: Erwin Ochoa MD [Primary Care Provider, Medical] - See instructions Activity Restrictions/Add. Instructions Additional Instructions/Restrictions: As discussed there was no evidence of any intrauterine in your quantitative beta-hCG (your hormone) was down to 3 which is essentially undetectably low. This hormone typically remains elevated for several days to weeks after a miscarriage but the fact that this is down to 0 means that you are either never or with 5 positive home tests 2 weeks ago you are likely already miscarrying at that time. No indication for having any repeat labs done tomorrow but keep her follow-up appointment with your [facility] doctor. Also as discussed you had evidence of an abnormal urinalysis but without any symptoms of UTI we are not going to treat that at the moment. Clinical Impressions Clinical Impression: Spontaneous Instructions Patient Instructions: DI for Acute Abdominal Pain Print Language Print Language: Citizen Of [place] Discharge ED Provider: Delores Iqbal General Adult HPI General Chief complaint: Abdominal Pain Stated complaint: vaginal bleeding, positive test 2 weeks Time Seen by Provider: 06/27/25 10:31 Mode of Arrival: Ambulatory Source of Information: Patient Description of Symptoms (Recalled from ER Triage Doc. by RN): patient states she had a positive test about 2 weeks ago and lastnight she started having lower abdominal cramping and heavy bright red bleeding with clots. she is unsure on how far along she is, has ob appt jul 30. History of Present Illness HPI narrative: 25-year-old with a positive test 2 weeks ago believes that she is 4 to 5 weeks by dates presents today with lower abdominal cramping that slightly heavier than her menstrual cramps and some bright red blood. No definitive tissue loss. She took some Tylenol with some mild improvement and to have the headaches that she was having. Denies any other past medical history. This is her first . Related Data Previous Rx's ?Medication ?Instructions ?Recorded azithromycin 250 mg tablet See Rx Instructions PO .COM PLEX #6 04/11/25 (Zithromax Z-Gurwinder) tabs zcbmhtavjwoleyv-rvuzdzhaicajglr-PG 5 ml PO Q4-6H PRN c old symptoms 04/11/25 2 mg-30 mg-10 mg/5 mL oral syrup #90 mL (Bromfed DM) Allergies Allergy/AdvReac Type Severity Reaction Status Date / Time amoxicillin (AMOXICILLIN) Allergy Unknown I-HIVES Verified 04/11/25 17:09 cefaclor (CEFACLOR) Allergy Unknown I-HIVES Verified 04/11/25 17:09 [facility] Disclaimer: The information contained in this section may have been updated after the patient was seen, as this information can be updated by other users. Medical History ASCUS with positive high risk HPV cervical Family history of breast cancer maternal grandmother diagnosed at age 60 No significant past medical history Surgical History History of placement of ear tubes History of tonsillectomy Family History Other Cancer Diabetes Hypertension Social History Smoking Status: Current every day smoker alcohol intake: current substance use type: denies use current occupational status: employed and other Travel in the last 8 weeks?: None Have you lived/traveled outside US in past 30 days?: No Contact w/someone who lives/traveled outside US past 30 days?: No Exposure to someone with infectious disease in past 14 days?: No Do you have a fever (greater than 100.4 F or 38 C)?: No Have you tested positive for COVID-19?: No Exposed to someone with COVID-19 in past 14 days?: No Do you have a sore throat?: No Do you have a cough?: No Do you have any weakness?: No Do you have any diarrhea?: No Are you experiencing any unusual bleeding?: No Do you have any muscle aches/pain?: No Do you have any abdominal pain?: No Are you experiencing loss of taste or smell?: No Other Medical History Have you received the Pneumonia Vaccine: No ROS Obtained: Yes All systems reviewed & no additional complaints except as documented Physical Exam General General appearance: alert and in no apparent distress Respiratory Respiratory exam: Present normal lung sounds bilaterally Cardiovascular Cardiovascular exam: Present regular rate and normal rhythm Abdominal Exam Abdominal exam: Present soft; Absent distention or tenderness Neurological Exam Neurological exam: Present alert and oriented X3 Medical Decision Making Medical Records Screening: Per USPSTF and CDC recommendations, given the prevalence of disease in our region, it is our hospital?s policy to screen for HIV and viral Hepatitis for all patients aged 18 and over and those with ongoing risk factors. Matteo Inquiry Pt receiving controlled substance: No Vital Signs: 06/27/25 10:31 06/27/25 10:31 06/27/25 11:00 Temperature 98.5 F Temperature Source Oral Pulse Rate 91 H 83 Pulse Rate [Right Radial] 115 H Respiratory Rate 17 Blood Pressure 135/86 136/79 Blood Pressure [Right Arm] 157/101 H Blood Pressure Mean [Right Arm] 119 Blood Pressure Source [Right Arm] Automatic Cuff Blood Pressure Position [Right Arm] Supine 02 Sat by Pulse Oximetry 99 100 99 Oxygen Delivery Method Room Air Room Air Room Air 06/27/25 11:31 Temperature Temperature Source Pulse Rate 85 Pulse Rate [Right Radial] Respiratory Rate 16 Blood Pressure 134/75 Blood Pressure [Right Arm] Blood Pressure Mean [Right Arm] Blood Pressure Source [Right Arm] Blood Pressure Position [Right Arm] 02 Sat by Pulse Oximetry 100 Oxygen Delivery Method Room Air Lab Data Lab results reviewed: Yes I reviewed the patient's lab results. Lab Results 06/27/25 10:23: Urine Color Red, Urine Appearance Turbid, Urine pH 6.5, Ur Specific [place] 1.015, Urine Protein 2+ A, Urine Glucose (UA) Negative, Urine Ketones 1+, Urine Blood 3+ A, Urine Nitrate Positive A, Urine Bilirubin Negative, Urine Urobilinogen 1.0, Ur Leukocyte Esterase 1+ A, Urine RBC Tntc, Urine WBC 10-20, Ur Squamous Epith Cells Occasional, Urine Bacteria Trace 06/27/25 10:31: WBC 7.4, RBC 5.08, Hgb 14.7, Hct 44.4, MCV 87.4, MCH 28.9, MCHC 33.1, RDW 13.1, Plt Count 347, MPV 9.8, Neut % (Auto) 69.8, Lymph % (Auto) 19.1, [place] % (Auto) 4.4, Eos % (Auto) 5.7, Baso % (Auto) 0.7, Neut # (Auto) 5.2, Lymph # (Auto) 1.4, [place] # (Auto) 0.3, Eos # (Auto) 0.4, Baso # (Auto) 0.1, Sodium 140, Potassium 3.8, Chloride 99, Carbon Dioxide 29, Anion Gap 15.8 H, BUN 8, Creatinine 0.90, Estimated Creat Clear 96, Estimated GFR 75, Est GFR ( Amer) 91, Glucose 114 H, Calcium 9.9, Total Bilirubin 1.1, AST 36, ALT 16, Alkaline Phosphatase 47, Total Protein 9.7 H, Albumin 5.3 H, Globulin 4.4 H, Albumin/Globulin Ratio 1.2, HCG, Quant 3, HCV Ab FRANCES w/Rflx PCR Qn Negative, HIV Ag/Ab Combo Qual Negative 06/27/25 10:55: Blood Type A Positive, Antibody Screen Negative 06/27/25 10:31 06/27/25 10:31 Orders (Tests/Meds): ORDERS Category Date Time Status Type and Screen Stat BBK 06/27/25 10:55 Completed POCUS Point of Care (ER Only) Stat Exams 06/27/25 10:31 Ordered Beta HCG, Quant [HCG,Quantitative] Stat Lab 06/27/25 10:31 Completed CBC w/Auto Diff [Complete Blood Count Auto Diff] Stat Lab 06/27/25 10:31 Completed CMP [Comprehensive Metabolic Panel] Stat Lab 06/27/25 10:31 Completed HIV Combo Stat Lab 06/27/25 10:31 Completed Hepatitis C Ab Qual. W/ RFX Stat Lab 06/27/25 10:31 Completed UA [Urinalysis and Microscopic] Stat Lab 06/27/25 10:23 Completed Urine Culture Stat Micro 06/27/25 10:23 Received US OB transvaginal Stat Ultrasound 06/27/25 10:43 Taken Medical Decision Narrative: Patient is a 25-year-old female presenting today with abdominal cramping bleeding in the setting of a positive test at home. Limited ultrasound did not yield an IUP. However at 4 to 5 weeks I do not expect to see anything definitive in the uterus. Will get a transvaginal ultrasound and check a quantitative beta-hCG in addition to other labs. Likely will be at of unknown anatomic location unable to rule out ectopic and will need close follow-up. Reassessment 1222 urinalysis came back nitrate positive and reds too numerous to count and 10-20 whites patient states that she did get blood in her urine and she has had no symptoms of UTI including burning frequency urgency etc. She also had diarrhea this morning this is most likely a contaminant. Guarding her ultrasound transvaginal ultrasound done formally did not yield any intrauterine and quantitative beta-hCG returned at 3. So she the patient was either never or she was beginning to miscarry 2 weeks ago when she first had her home test to allow the hCG level to have cleared to the point of being essentially 0. Given the fact that she had 5 home test or positive I suspect this was a completed spontaneous . She will keep her follow-up appoint with [facility]. Return with any worsening of her symptoms. This was communicated with the patient she was discharged in stable condition. Procedures Miscellaneous Procedure Procedure Performed: Limited OB ultrasound Indication: Vaginal bleeding home positive test Identified structures: [-Uterus -Left adnexa -Right adnexa -Pouch of [place]] Findings: Uterus: No definite IUP Right adnexa: No free fluid Left adnexa: No free fluid Cul de sac: No free fluid Impression: No evidence of definite IUP cannot rule out ectopic Images were saved to permanent archive The study was technically adequate CPT Transabdominal: 94423-11 This study was performed by me, and I personally interpreted all images/videos. Based on my clinical judgement, these images were adequate and did not necessitate further imaging. Critical Care Critical Care Time Critical Care Time: No
[2025-06-27 10:46] LABS: Microscopic, Urine URINE MICROSCOPIC (MICROSCOPIC)
[2025-06-27 10:49] LABS: Hematocrit 44.4 % (37.0-47.0); Hemoglobin 14.7 g/dL (12.2-16.2); Immature Granulocytes % 0.3 %; Mean Corpuscular HGB Conc 33.1 g/dL (31.8-35.4); Mean Corpuscular Hemoglobin 28.9 pg (27.0-31.2); Mean Corpuscular Volume 87.4 fl (81-99); Nucleated Red Blood Cells % 0 %; Platelet Count 347 K/mm3 (142-424); Red Blood Count 5.08 M/mm3 (4.20-5.40); Red Cell Distribution Width-SD 42.1 fL; White Blood Count 7.4 K/mm3 (4.8-10.8)
[2025-06-27 10:49] LABS: Bilirubin,Urine Negative (Negative); Glucose,Urine (UA) Negative (Negative); Ketones,Urine 1+ (Negative); Leukocyte Esterase,Urine 1+ (Negative); PH,Urine 6.5 (5.0-8.5); Protein,Urine 2+ (Negative); Specific Gravity, Urine 1.015 (1.005-1.030); Urobilinogen,Urine 1.0 EU/dl (0.2)
[2025-06-27 10:51] LABS: Albumin Level 5.3 g/dl (3.5-5.0); Chloride 99 mmol/L (98-107); Potassium 3.8 mmoL/L (3.5-5.1); Sodium 140 mmol/L (136-145)
[2025-06-27 10:52] LABS: Color,Urine RED (Yellow)
[2025-06-27 10:53] LABS: Blood Urea Nitrogen 8 mg/dl (7-17); Creatinine Clearance Estimated 96 mL/min (50-200); Creatinine,Serum 0.90 mg/dl (0.52-1.04); Estimated Glomerular Filt Rate 75 ml/min (>60); GFR (African American) 91 ML/MIN (>60)
[2025-06-27 10:54] LABS: Alanine Aminotransferase 16 U/L (12-78); Albumin/Globulin Ratio 1.2 (1.1-1.8); Alkaline Phosphatase 47 U/L (38-126); Anion Gap 15.8 mEq/L (5-15); Aspartate Amino Transferase 36 U/L (14-36); Bilirubin,Total 1.1 mg/dl (0.2-1.3); Calcium 9.9 mg/dl (8.4-10.2); Carbon Dioxide 29 mmol/L (22.0-30.0); Globulin 4.4 g/dL (1.3-3.2); Glucose 114 mg/dl (74-100); Total Protein,Serum 9.7 g/dl (6.3-8.2)
--- NOTE | 2025-06-27 10:56 | PC.NURSE ---
rad called for US
[2025-06-27 11:00] VITALS: BP 136/79; PULSE 83; O2SAT 99
[2025-06-27 11:04] LABS: Bacteria,Urine Trace /lpf; RBC,Urine TNTC #/hpf (0-3); Squamous Epithelial Cell,Urine Occasional #/hpf (0-5)
[2025-06-27 11:31] VITALS: BP 134/75; PULSE 85; RESP 16; O2SAT 100
[2025-06-27 12:15] LABS: Hepatitis C Ab Qual. W/ RFX NEGATIVE (Negative)
[2025-06-27 12:22] VITALS: BP 125/80; PULSE 84; RESP 15; TEMP 37; O2SAT 99
--- NOTE | 2025-06-30 10:27 | PC.NURSE ---
Prelim urine culture results discussed with . He advised to call the pt to inquire if she was having symptoms. I called the pt to check in after receiving her prelim urine culture results. She denies any urinary symptoms. However, she states she saw her OB the next day who ended up sending her in macrobid to treat.
== END 2025-06-27 12:27 | disposition home or self-care (01) ==
PROVIDERS: Emergency Provider Student in an Organized Health Care Education/Training Program; PCP Internal Medicine
DX: O03.9 Complete or unspecified spontaneous abortion without complication (principal); R10.30 Lower abdominal pain, unspecified
CPT/HCPCS: 76817; 80053; 81001; 84702; 85025; 86803; 86850; 87086; 87088; 87389; 99284; 99285

== ENCOUNTER 2025-06-29 11:27 | Outpatient (CLI) | payer BC, SELFPAY | END 2025-06-29 23:59 | disposition home or self-care (01) | LOC: LAB 11:28 | PROVIDERS: PCP Internal Medicine; Visit Provider Obstetrics & Gynecology | DX: O03.9 Complete or unspecified spontaneous abortion without complication (principal); Z3A.00 Weeks of gestation of pregnancy not specified | CPT/HCPCS: 36415; 84702 ==